=== PATIENT | female | born 1945 | race Native Hawaiian/Other Pacific Islander ===

== ENCOUNTER 2016-08-11 17:41 | Emergency (ER) | payer MEDICARE, MEDICAID ==
[2016-08-11 17:58] VITALS: BP 146/80; PULSE 79; RESP 14; TEMP 97.9; O2SAT 99
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
== END 2016-08-11 18:44 | disposition home or self-care (01) ==
LOC: C.ER 17:41
DX: R41.0 Disorientation, unspecified (principal)

== ENCOUNTER 2016-12-24 16:34 | Emergency (ER) | payer MEDICARE, MEDICAID ==
[2016-12-24 16:52] VITALS: RESP 16; TEMP 98.3; O2SAT 100
--- NOTE | 2016-12-24 17:49 | CT ---
EXAM: CT Maxillofacial Without Intravenous Contrast CLINICAL HISTORY: 71 years old, female; Injury or trauma and signs and symptoms; Injury R/O left globe ruptur; Initial encounter; Bleeding/hemorrhage; Ocular (eye or eyeball) and orbit/periorbital; Other: Globe rupture; Additional info: Globe trama l eye, R/O globe rupture TECHNIQUE: Axial computed tomography images of the face without intravenous contrast. This CT exam was performed using one or more of the following dose reduction techniques: automated exposure control, adjustment of the mA and/or kV according to patient size, and/or use of iterative reconstruction technique. Coronal and sagittal reformatted images were created and reviewed. EXAM DATE/TIME: Exam ordered 12/24/2016 4:55 PM COMPARISON: No relevant prior studies available. FINDINGS: Bones/joints: A 4 mm area of sclerosis is noted in the right frontal bone adjacent to the frontal sinus. Incidental note is made of degenerative changes at the level of the anterior arch of C1 and the dens. Joint space narrowing and subchondral sclerosis with marginal osteophyte formation is present. Disc space narrowing and marginal osteophyte formation is noted at C3-4 and C4-5. No acute fracture. Soft tissues: Unremarkable. Orbits: Unremarkable. Sinuses: Unremarkable. No air-fluid levels. IMPRESSION: 1. No acute findings. No fracture. No evidence of orbital trauma. 2. 4 mm area of sclerosis noted within the right frontal bone. Appearance suggests a bone island
[2016-12-24] MEDS ORDERED: Tetracaine 0.5% Ophth 2 ML BOTTLE OS ONE (18:00)
[2016-12-24] MEDS ORDERED: Fluorescein 1 mg Ophthalmic Strip OS ONE (18:01)
[2016-12-24] MEDS ORDERED: Tetracaine 0.5% Ophth (OR ONLY) ONE (18:02)
[2016-12-24] MEDS ORDERED: Fluorescein 1 mg Ophthalmic Strip ONE (18:03)
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
[2016-12-24 18:43] VITALS: BP 152/85; PULSE 72
== END 2016-12-24 18:43 | disposition home or self-care (01) ==
LOC: C.ER 16:34
DX: S05.02XA Injury of conjunctiva and corneal abrasion without foreign body, left eye, initial encounter (principal); W22.8XXA Striking against or struck by other objects, initial encounter; Y92.22 Religious institution as the place of occurrence of the external cause